=== PATIENT | male | born 1985 | race Caucasian/White ===

== ENCOUNTER 2022-02-13 11:39 | Inpatient (IN) | payer SELFPAY ==
[~2022-02-13] VITALS: Ht 167.6 cm; Wt 65.8 kg
[2022-02-13 14:30] LABS: BASOPHILS % 0.6 % (0.0-2.0); EOSINOPHILS % 2.1 % (0.0-5.0); HEMATOCRIT. 44.9 % (42.0-52.0); HEMOGLOBIN. 15.4 g/dL (14.0-18.0); LYMPHOCYTES % 23.1 % (20.0-50.0); MEAN CORPUSCULAR HEMOGLOBIN 30.3 pg (28.0-32.0); MEAN CORPUSCULAR VOLUME 88.5 fL (80.0-94.0); MEAN PLATELET VOLUME 9.4 fl (7.4-10.4); MONOCYTES % 7.7 % (2.0-8.0); NEUTROPHILS % 66.5 % (40.0-76.0); PLATELET 176 x1000/uL (130-400); RED BLOOD CELL COUNT 5.08 mill/uL (4.7-6.1); RED CELL DISTRIBUTION WIDTH 13.4 % (11.6-14.6)
[2022-02-13 14:35] LABS: CLARITY URINE CLOUDY (CLEAR); COLOR URINE YELLOW (YELLOW); KETONES URINE NEGATIVE (NEGATIVE); LEUKOCYTE ESTERASE URINE NEGATIVE (NEGATIVE); NITRITE URINE NEGATIVE (NEGATIVE); OCCULT BLOOD URINE NEGATIVE (NEGATIVE); PH URINE 7.5 (4.5-8.0); PROTEIN URINE NEGATIVE (NEGATIVE); SPECIFIC GRAVITY URINE 1.011 (1.005-1.030); UROBILINOGEN URINE 0.2 E.U./dL (0.2-1.0)
[2022-02-13 14:36] LABS: CHLORIDE 104 mEq/L (98-107)
[2022-02-13 15:01] LABS: CHLORIDE 107 mEq/L (98-107)
[2022-02-13] MEDS ORDERED: ACETAMINOPHEN 325MG TABLET PO NR (16:17)
[2022-02-13 21:18] LABS: *AMPHETAMINES SCREEN URINE NEGATIVE (NEGATIVE); *BARBITURATES SCREEN URINE NEGATIVE (NEGATIVE); *BENZODIAZEPINES SCREEN URINE NEGATIVE (NEGATIVE); *COCAINE SCREEN URINE NEGATIVE (NEGATIVE); CANNABINOID URINE SCREEN NEGATIVE (NEGATIVE); METHADONE URINE SCREEN NEGATIVE (NEGATIVE); OPIATES URINE SCREEN NEGATIVE (NEGATIVE); PHENCYCLIDINE URINE SCREEN NEGATIVE (NEGATIVE)
[2022-02-13 21:59] VITALS: BP 138/84
[2022-02-13] MEDS ORDERED: ZOLPIDEM TARTRATE 5MG TABLET PO PRN (22:30)
[2022-02-13] MEDS ORDERED: KETOROLAC 30MG/ML VIAL IV PRN (22:30)
[2022-02-13] MEDS ORDERED: IPRATROPIUM/ALBUTEROL 0.5-3(2.5)MG/3ML NEB NEB PRN (22:30)
[2022-02-13] MEDS ORDERED: CLONIDINE 0.1MG TABLET PO PRN (22:30)
[2022-02-13] MEDS ORDERED: DOCUSATE SODIUM 100MG CAPSULE PO PRN (22:30)
[2022-02-13] MEDS ORDERED: ONDANSETRON HCL 4MG/2ML INJ IV PRN (22:30)
[2022-02-13] MEDS ORDERED: MAGNESIUM/ALUMINUM HYDROXIDE/SIMETHICONE 30ML UDC PO PRN (22:30)
[2022-02-13] MEDS ORDERED: NITROGLYCERIN 0.4MG TABLET SL SL PRN (22:30)
[2022-02-13] MEDS ORDERED: ACETAMINOPHEN 325MG TABLET PO PRN ×3 (22:30)
[2022-02-14] VITALS: BP 116/63
[2022-02-14 02:20] LABS: ETHANOL BLOOD < 10 mg/dL; T4 FREE 0.92 ng/dL (0.76-1.46); TOTAL IRON BINDING CAPACITY 332 ug/dL (250-450)
[2022-02-14 02:32] LABS: FOLIC ACID (FOLATE) SERUM 12.8 ng/mL (>5.38)
[2022-02-14 04:00] VITALS: BP 122/62
[2022-02-14 07:21] LABS: CHLORIDE 111 mEq/L (98-107)
[2022-02-14 07:29] LABS: CREATINE KINASE 63 IU/L (39-308); HDL CHOLESTEROL 69 mg/dL (40-59); LDL CHOLESTEROL 102 mg/dL (5-100)
[2022-02-14 07:31] LABS: BASOPHILS % 0.8 % (0.0-2.0); EOSINOPHILS % 3.1 % (0.0-5.0); HEMATOCRIT. 46.4 % (42.0-52.0); HEMOGLOBIN. 15.8 g/dL (14.0-18.0); LYMPHOCYTES % 27.3 % (20.0-50.0); MEAN CORPUSCULAR HEMOGLOBIN 30.2 pg (28.0-32.0); MEAN CORPUSCULAR VOLUME 88.4 fL (80.0-94.0); MONOCYTES % 9.4 % (2.0-8.0); NEUTROPHILS % 59.4 % (40.0-76.0); PLATELET 174 x1000/uL (130-400); RED BLOOD CELL COUNT 5.25 mill/uL (4.7-6.1); RED CELL DISTRIBUTION WIDTH 13.7 % (11.6-14.6)
[2022-02-14 08:00] VITALS: BP 120/48
[2022-02-14] MEDS ORDERED: ASPIRIN 325MG EC TABLET PO SCH (09:00)
[2022-02-14] MEDS ORDERED: ENOXAPARIN 40MG/0.4ML SYR SUBCUT SCH (09:00)
[2022-02-14] MEDS ORDERED: FAMOTIDINE 20MG TABLET PO SCH (09:00)
[2022-02-14 11:19] VITALS: BP 118/70
== END 2022-02-14 12:00 | disposition home or self-care (01) | DRG 203 ==
LOC: ER 12:11 → EDBEDREQ 17:05 → 7EST 18:28 → EDBEDREQ 18:32 → EDBEDREQTM 18:32
PROVIDERS: ADMIT Internal Medicine; ATTEND Internal Medicine
DX: R07.89 Other chest pain (principal); E87.1 Hypo-osmolality and hyponatremia; M62.838 Other muscle spasm
CPT/HCPCS: 36415; 71045; 80048; 80053; 80061; 80305; 80320; 81003; 82550; 82553; 82607; 82746; 83540; 83550; 83735; 83880; 84439; 84443; 84484; 85025; 93005; 93970; 99285; J1650; G0480

== ENCOUNTER 2025-04-14 23:12 | Emergency (ER) | payer MEDICAID ==
[~2025-04-14] VITALS: Ht 175.3 cm; Wt 65.6 kg
[2025-04-14 23:15] VITALS: BP 129/88; PULSE 87; RESP 16; TEMP 36.8; O2SAT 99
[2025-04-15] MEDS: BACITRACIN ZINC OINT UDPKT TOP ONE (00:55)
[2025-04-15] MEDS: TETANUS, DIPHTHERIA, PERTUSSIS VAC/PF 0.5ML (>10YR OLD) IM ONE (00:56)
[2025-04-15] MEDS: LIDOCAINE HCL 1% 20ML VIAL INFIL ONE (00:56)
[2025-04-15] MEDS ORDERED: BO1 TP (01:20)
== END 2025-04-15 02:15 | disposition home or self-care (01) ==
LOC: ER 23:12
DX: S01.412A Laceration without foreign body of left cheek and temporomandibular area, initial encounter (principal); X58.XXXA Exposure to other specified factors, initial encounter; Y93.89 Activity, other specified; Y92.89 Other specified places as the place of occurrence of the external cause; Y99.8 Other external cause status
CPT/HCPCS: 12013; 99283; 90715; 90471; J2003; Z7610

== ENCOUNTER 2025-04-21 17:50 | Emergency (ER) | payer MEDICAID ==
[~2025-04-21] VITALS: Ht 167.6 cm; Wt 65.0 kg
[~2025-04-21 17:50] MED LIST: BO1 TP
[2025-04-21 17:54] VITALS: O2SAT 100
[2025-04-21 18:03] VITALS: BP 120/74; PULSE 86; RESP 18; TEMP 36.7; O2SAT 99
== END 2025-04-21 18:26 | disposition home or self-care (01) ==
LOC: ER 17:50
DX: S01.81XD Laceration without foreign body of other part of head, subsequent encounter (principal); X58.XXXD Exposure to other specified factors, subsequent encounter
CPT/HCPCS: 99282